=== PATIENT | male | born 2000 | race Caucasian/White ===

== ENCOUNTER 2021-09-07 20:14 | Emergency (ER) | payer OTHER ==
[~2021-09-07] VITALS: Ht 185.4 cm; Wt 81.8 kg
[2021-09-07 22:09] VITALS: BP 122/72
== END 2021-09-07 22:09 | disposition home or self-care (01) ==
LOC: ED 20:14
DX: S61.012A Laceration without foreign body of left thumb without damage to nail, initial encounter (principal); J45.909 Unspecified asthma, uncomplicated; Z23 Encounter for immunization; W26.0XXA Contact with knife, initial encounter
CPT/HCPCS: 90715

== ENCOUNTER → 2021-09-18 | Outpatient (CLI) | payer OTHER | LOC: AMSURD 11:53 | DX: S61.012A Laceration without foreign body of left thumb without damage to nail, initial encounter (principal); J45.909 Unspecified asthma, uncomplicated; Z23 Encounter for immunization; W26.0XXA Contact with knife, initial encounter ==